=== PATIENT | female | born 1975 | race Caucasian/White ===

== ENCOUNTER 2019-01-15 07:06 | Emergency (ER) | payer SELFPAY ==
--- NOTE | 2019-01-15 07:47 | ER ---
Nurse's Notes [facility] Name: Naheed Moran Age: 43 yrs Sex: Female : 1975 Arrival Date: 01/15/2019 Time: 07:08 Bed 18 Private MD: Diagnosis: Encounter for screening, unspecified Presentation: 01/15 07:09 Presenting complaint: EMS states: Pt slipped and fell on Jan 06, c/o pain to entire ph R side of body and L low back, denies LOC. Transition of care: patient was not received from another setting of care. Onset of symptoms was January 15, 2019. Risk Assessment: Do you want to hurt yourself or someone else? Patient reports no desire to harm self or others. Initial Sepsis Screen: Does the patient meet any 2 criteria? No. Patient's initial sepsis screen is negative. Does the patient have a suspected source of infection? No. Patient's initial sepsis screen is negative. Care prior to arrival: None. 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 - Social history:: Smoking status: Patient uses tobacco products, smokes one pack cigarettes per day. - Ebola Screening: : No symptoms or risks identified at this time. Screenin:33 Abuse screen: Denies threats or abuse. Nutritional screening: No deficits noted. ph Tuberculosis screening: No symptoms or risk factors identified. Fall Risk Fall in past 12 months (25 points). No secondary diagnosis (0 pts). No IV (0 pts). Ambulatory Aid- None/Bed Rest/Nurse Assist (0 pts). Gait- Normal/Bed Rest/Wheelchair (0 pts) Mental Status- Oriented to own ability (0 pts). Total Goldstein Fall Scale indicates No Risk (0-24 pts). Assessment: 07:26 General: Appears in no apparent distress. uncomfortable, Behavior is calm, cooperative, ph Reports. Pain: Complains of pain in coccyx Pain radiates to right leg Pain currently is 8 out of 10 on a pain scale. Quality of pain is described as radiating, shooting, Pain began Sep 17th Is continuous, Alleviated by repositioning, Aggravated by repositioning. Neuro: No deficits noted. Level of Consciousness is awake, alert, obeys commands, Oriented to person, place, time, situation, Denies paresthesias numbness. Cardiovascular: Capillary refill < 3 seconds Patient's skin is warm and dry. Respiratory: Breath sounds are clear bilaterally. Derm: Bruising that is yellow, on gluteal cleft. Musculoskeletal: Circulation, motion, and sensation intact. Capillary refill < 3 seconds, Range of motion: intact in all extremities, Swelling absent Tenderness present in lumbar area. Vital Signs: 07:13 BP 126 / 54; Pulse 72; Resp 20; Temp 98.6; Pulse Ox 93% on R/A; Weight 96.16 kg; Height ph 5 ft. 9 in. (175.26 cm); Pain 8/10; 07:13 Body Mass Index 31.31 (96.16 kg, 175.26 cm) ph ED Course: 07:08 Patient arrived in ED. ph 07:12 Triage completed. ph 07:12 Errol Gardner MD is Attending Physician. 07:14 Zabrina Scott RN is Primary Nurse. ph 07:14 Arm band placed on Patient placed in an exam room, on a stretcher, on pulse oximetry. ph 07:35 Patient has correct armband on for positive identification. Bed in low position. Call ph light in reach. Side rails up X 1. Pulse ox on. NIBP on. Door closed. Noise minimized. Lights dimmed. Warm blanket given. Head of bed Elevated. 07:39 No provider procedures requiring assistance completed. Patient did not have IV access ph during this emergency room visit. Administered Medications: No medications were administered Outcome: 07:40 Medical screen evaluation completed per provider. Patient declined treatment. ph 07:40 Condition: good 07:46 Discharge ordered by . 07:49 Patient left the ED. ph Signatures: Zabrina Scott RN RN ph Errol Gardner MD MD
--- NOTE | 2019-01-15 07:48 | EDPHYS ---
Physician Documentation [facility] Name: Naheed Moran Age: 43 yrs Sex: Female : 1975 Arrival Date: 01/15/2019 Time: 07:08 Bed 18 Private MD: ED Physician Errol Gardner HPI: 01/15 07:43 This 43 yrs old Female presents to ER via EMS with complaints of Fall Injury gs - Jan 06. 07:43 Details of fall: The patient fell from an upright position, while walking. Onset: The gs symptoms/episode began/occurred acutely, 2 week(s) ago. Associated injuries: The patient sustained injury to the low back, contusion. Severity of symptoms: At their worst the symptoms were moderate, in the emergency department the symptoms are unchanged. The patient has experienced similar episodes in the past, a few times. The patient has not recently seen a physician. 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 - Social history:: Smoking status: Patient uses tobacco products, smokes one pack cigarettes per day. - Ebola Screening: : No symptoms or risks identified at this time. ROS: 07:43 Abdomen/GI: Negative for bowel incontinence. gs 07:43 Back: 07:43 : Negative for urinary symptoms. 07:43 Neuro: Positive for loss of consciousness, Negative for altered mental status, gait disturbance, headache, numbness, seizure activity, speech changes, weakness. 07:43 All other systems are negative. Exam: 07:43 Head/Face: Normocephalic, atraumatic. Eyes: Pupils equal round and reactive to light, gs extra-ocular motions intact. Lids and lashes normal. Conjunctiva and sclera are non-icteric and not injected. Cornea within normal limits. Periorbital areas with no swelling, redness, or edema. ENT: Nares patent. No nasal discharge, no septal abnormalities noted. Tympanic membranes are normal and external auditory canals are clear. Oropharynx with no redness, swelling, or masses, exudates, or evidence of obstruction, uvula midline. Mucous membranes moist. Neck: Trachea midline, no thyromegaly or masses palpated, and no cervical lymphadenopathy. Supple, full range of motion without nuchal rigidity, or vertebral point tenderness. No Meningismus. Chest/axilla: Normal chest wall appearance and motion. Nontender with no deformity. No lesions are appreciated. Cardiovascular: Regular rate and rhythm with a normal S1 and S2. No gallops, murmurs, or rubs. Normal PMI, no JVD. No pulse deficits. Respiratory: Lungs have equal breath sounds bilaterally, clear to auscultation and percussion. No rales, rhonchi or wheezes noted. No increased work of breathing, no retractions or nasal flaring. Abdomen/GI: Soft, non-tender, with normal bowel sounds. No distension or tympany. No guarding or rebound. No evidence of tenderness throughout. Skin: Warm, dry with normal turgor. Normal color with no rashes, no lesions, and no evidence of cellulitis. MS/ Extremity: Pulses equal, no cyanosis. Neurovascular intact. Full, normal range of motion. Neuro: Awake and alert, GCS 15, oriented to person, place, time, and situation. Cranial nerves II-XII grossly intact. Motor strength 5/5 in all extremities. Sensory grossly intact. Cerebellar exam normal. Normal gait. 07:43 Constitutional: The patient appears alert, awake. 07:43 Back: pain, that is mild, of the right low back, vertebral tenderness, is not appreciated. Vital Signs: 07:13 BP 126 / 54; Pulse 72; Resp 20; Temp 98.6; Pulse Ox 93% on R/A; Weight 96.16 kg; Height ph 5 ft. 9 in. (175.26 cm); Pain 8/10; 07:13 Body Mass Index 31.31 (96.16 kg, 175.26 cm) ph MDM: 07:25 Patient medically screened. 07:43 Data reviewed: vital signs, nurses notes. Administered Medications: No medications were administered Disposition: 01/15/19 07:46 Discharged to Home. Impression: Encounter for screening, unspecified. - Condition is Stable. - Medication Reconciliation Form, Thank You Letter, Antibiotic Education, Prescription Opioid Use form. - Follow up: Private Physician; When: 2 - 3 days; Reason: Re-evaluation by your physician. Signatures: Zabrina Scott RN RN ph GardnerErrol MD MD gs Corrections: (The following items were deleted from the chart) 07:49 07:46 01/15/2019 07:46 Discharged to Home. Impression: Encounter for screening, ph unspecified. Condition is Stable. Forms are Medication Reconciliation Form, Thank You Letter, Antibiotic Education, Prescription Opioid Use. Follow up: Private Physician; When: 2 - 3 days; Reason: Re-evaluation by your physician. gs
== END 2019-01-15 07:49 | disposition home or self-care (01) ==
LOC: ER 07:06
DX: M54.5 Low back pain (principal); F17.210 Nicotine dependence, cigarettes, uncomplicated; W01.0XXA Fall on same level from slipping, tripping and stumbling without subsequent striking against object, initial encounter; Y93.9 Activity, unspecified; Y92.9 Unspecified place or not applicable; Z13.9 Encounter for screening, unspecified
CPT/HCPCS: 99283